=== PATIENT | male | born 1965 | race Caucasian/White ===

== ENCOUNTER 2017-11-28 14:08 | Emergency (ER) | payer OTHER ==
[~2017-11-28] VITALS: Ht 182.9 cm; Wt 120.0 kg
[~2017-11-28 14:08] MED LIST: LORTA10 PO; RIVA20 PO
[2017-11-28 14:18] VITALS: BP 121/80; PULSE 80; RESP 16; TEMP 97.9; O2SAT 99
[2017-11-28] MEDS ORDERED: SODIUM CHLORIDE 0.9% FLUSH 10 ML FLUSH IVF PRN (15:00)
[2017-11-28] MEDS ORDERED: METOPROLOL TARTRATE 5 MG/5 ML VIAL IV PUSH ONE (15:00)
[2017-11-28 15:13] VITALS: BP_SYST 103; BP_SYST 97; BP_DIAS 60; BP_DIAS 67; PULSE 124; RESP 18; RESP 20; O2SAT 99
--- NOTE | 2017-11-28 15:17 | PD ---
HPI Chief Complaint: Cardiac Complaint Time Seen by Provider: 15:00 Travel History International Travel<30 days: No Contact w/Intl Traveler<30days: No Traveled to known affect area: No History of Present Illness HPI 52-year-old male patient with history of atrial fibrillation status post ablation 4 years ago, follows up with Dr. Denney, currently not on any anticoagulation, presents to the ER today after having run outside, is now having palpitations and feels like his heart is racing like it when he was having atrial fibrillation before. He denies any chest pains, shortness of breath, fevers, vomiting, or other symptoms. He has been eating and drinking normally. Modifying Factors: None Associated Signs & Symptoms: Palpitations, heart racing Risk Factors: Atrial fibrillation PFSH Past Medical History Hx Anticoagulant Therapy: Yes (81MG ASA) Blood Disorders: No Depression: Yes Heart Rhythm Problems: Yes (4YR. AGO SAME THING RESOLVED ON OWN) Cancer: No Cardiovascular Problems: Yes Chemotherapy: No Diminished Hearing: No Endocrine: No Genitourinary: No Immune Disorder: No Musculoskeletal: No Neurologic: No Psychiatric: No Reproductive: No Respiratory: No Radiation Therapy: No Sickle Cell Disease: No Tetanus Vaccination: < 5 Years Influenza Vaccination: No Past Surgical History Abdominal Surgery: No AICD: No Arteriovenous Shunt: No Cardiac Surgery: Yes (CARDIAC ABLATION) Insulin Pump: No Joint Replacement: No Pacemaker: No Other Surgery: No Social History Alcohol Use: Yes (OCCASIONALLY) Tobacco Use: No (quit 10 years ago ) Substance Use: No Allergies-Medications (Allergen,Severity, Reaction): Coded Allergies: No Known Allergies (Verified Adverse Reaction, Unknown, 11/28/17) Reported Meds & Prescriptions Reported Meds & Active Scripts Active No Active Prescriptions or Reported Medications Review of Systems Except as stated in HPI: all other systems reviewed are Neg Physical Exam Narrative GENERAL: Well-developed middle-age male patient currently and mild distress. Awake and oriented 3. SKIN: Focused skin assessment warm/dry. HEAD: Atraumatic. Normocephalic. EYES: Pupils equal and round. No scleral icterus. No injection or drainage. ENT: No nasal bleeding or discharge. Mucous membranes pink and moist. NECK: Trachea midline. No JVD. CARDIOVASCULAR: Fast and irregularly irregular. RESPIRATORY: No accessory muscle use. Clear to auscultation. Breath sounds equal bilaterally. GASTROINTESTINAL: Abdomen soft, non-tender, nondistended. Hepatic and splenic margins not palpable. MUSCULOSKELETAL: No obvious deformities. No clubbing. No cyanosis. No edema. NEUROLOGICAL: Awake and alert. No obvious cranial nerve deficits. Motor grossly within normal limits. Normal speech. PSYCHIATRIC: Appropriate mood and affect; insight and judgment normal. Data Data Last Documented VS Vital Signs Date Time Temp Pulse Resp B/P (MAP) Pulse Ox O2 Delivery O2 Flow Rate FiO2 11/28/17 15:49 97.8 101 18 100/62 (75) 100 Room Air Orders Orders Electrocardiogram (11/28/17 14:56) Basic Metabolic Panel (Bmp) (11/28/17 14:56) Ckmb (Isoenzyme) Profile (11/28/17 14:56) Complete Blood Count With Diff (11/28/17 14:56) Magnesium (Mg) (11/28/17 14:56) Prothrombin Time / Inr (Pt) (11/28/17 14:56) Act Partial Throm Time (Ptt) (11/28/17 14:56) Troponin I (11/28/17 14:56) Ecg Monitoring (11/28/17 14:56) Bilateral Bp Monitoring (11/28/17 14:56) Iv Access Insert/Monitor (11/28/17 14:56) Oximetry (11/28/17 14:56) Oxygen Administration (11/28/17 14:56) Sodium Chloride 0.9% Flush (Ns Flush) (11/28/17 15:00) Chest, Pa & Lat (11/28/17 14:56) Metoprolol Tartrate Inj (Lopressor Inj) (11/28/17 15:00) CKMB (11/28/17 15:05) CKMB% (11/28/17 15:05) Labs Laboratory Tests Test 11/28/17 15:05 White Blood Count 9.5 TH/MM3 Red Blood Count 5.24 MIL/MM3 Hemoglobin 15.8 GM/DL Hematocrit 47.0 % Mean Corpuscular Volume 89.6 FL Mean Corpuscular Hemoglobin 30.2 PG Mean Corpuscular Hemoglobin Concent 33.7 % Red Cell Distribution Width 13.9 % Platelet Count 227 TH/MM3 Mean Platelet Volume 10.1 FL Neutrophils (%) (Auto) 65.2 % Lymphocytes (%) (Auto) 22.6 % Monocytes (%) (Auto) 9.0 % Eosinophils (%) (Auto) 2.7 % Basophils (%) (Auto) 0.5 % Neutrophils # (Auto) 6.2 TH/MM3 Lymphocytes # (Auto) 2.1 TH/MM3 Monocytes # (Auto) 0.9 TH/MM3 Eosinophils # (Auto) 0.3 TH/MM3 Basophils # (Auto) 0.0 TH/MM3 CBC Comment DIFF FINAL Differential Comment Prothrombin Time 10.4 SEC Prothromb Time International Ratio 1.0 RATIO Activated Partial Thromboplast Time 25.2 SEC Blood Urea Nitrogen 17 MG/DL Creatinine 1.18 MG/DL Random Glucose 94 MG/DL Calcium Level 9.0 MG/DL Magnesium Level 2.2 MG/DL Sodium Level 141 MEQ/L Potassium Level 4.2 MEQ/L Chloride Level 108 MEQ/L Carbon Dioxide Level 23.4 MEQ/L Anion Gap 10 MEQ/L Estimat Glomerular Filtration Rate 65 ML/MIN Total Creatine Kinase 312 U/L Creatine Kinase MB 6.8 NG/ML Creatine Kinase MB % 2.2 % Troponin I LESS THAN 0.02 NG/ML MDM Medical Decision Making Medical Screen Exam Complete: Yes Emergency Medical Condition: Yes Medical Record Reviewed: Yes Interpretation(s) EKG shows atrial fibrillation with rapid ventricular response at a rate of 150 bpm Laboratory Tests Test 11/28/17 15:05 Monocytes (%) (Auto) 9.0 % (0.0-8.0) Chloride Level 108 MEQ/L (98-107) Estimat Glomerular Filtration Rate 65 ML/MIN (>89) Total Creatine Kinase 312 U/L (39-308) Creatine Kinase MB 6.8 NG/ML (0.5-3.6) Troponin I LESS THAN 0.02 NG/ML Last 24 hours Impressions Chest X-Ray 11/28/17 3983 Signed Impressions: CONCLUSION: No active disease. Differential Diagnosis Dysrhythmias versus dehydration versus electrolyte abnormalities Narrative Course Cardiac enzymes are negative. EKG shows A. fib with RVR and patient was given IV metoprolol in the ER with improvement rates, his heart rate went into the 100s. The case was discussed with Dr. Denney, and he states that considering the rate is coming down, patient can follow-up in his clinic on Thursday and be started on metoprolol 25 twice daily. On the other hand, if the rate is fairly uncontrolled, patient can be admitted as well. I have offered to admit the patient as well but he is comfortable with outpatient therapy at this point. Patient has been on this dose in the past and states that he had been taking baby aspirin before he got an ablation for his atrial fibrillation. At this point, he should return for any worsening in symptoms. The plan was discussed with him and he states understanding. Diagnosis Primary Impression: Atrial fibrillation with RVR Med/Other Pt SpecificInfo: Prescription(s) given Scripts Metoprolol Tartrate (Metoprolol Tartrate) 25 Mg Tab 25 MG PO BID, #14 TAB 0 Refills Prov: Jonathan Barrios MD 11/28/17 Aspirin (Aspirin) 325 Mg Tab 325 MG PO DAILY, #14 TAB 0 Refills Prov: Jonathan Barrios MD 11/28/17 Disposition: 01 DISCHARGE HOME Condition: Stable Jonathan Barrios MD Nov 28, 2017 15:17
[2017-11-28 15:22] LABS: AUTOMATED NEUTROPHIL # 6.2 TH/MM3 (1.8-7.7); BASOPHIL % 0.5 % (0.0-2.0); EOSINOPHIL # 0.3 TH/MM3 (0-0.4); EOSINOPHIL % 2.7 % (0.0-4.0); HEMOGLOBIN 15.8 GM/DL (13.0-17.0); LYMPH % 22.6 % (9.0-44.0); LYMPHOCYTE # 2.1 TH/MM3 (1.0-4.8); MEAN CELL VOLUME 89.6 FL (80.0-100.0); MEAN CORPUSCULAR HEMOGLOBIN 30.2 PG (27.0-34.0); MEAN CORPUSCULAR HGB CONC 33.7 % (32.0-36.0); MEAN PLATELET VOLUME 10.1 FL (7.0-11.0); MONOCYTE # 0.9 TH/MM3 (0-0.9); NEUT % 65.2 % (16.0-70.0); PLATELET COUNT 227 TH/MM3 (150-450); RED BLOOD COUNT 5.24 MIL/MM3 (4.50-5.90); RED CELL DISTRIBUTION WIDTH 13.9 % (11.6-17.2); WHITE BLOOD COUNT 9.5 TH/MM3 (4.0-11.0)
[2017-11-28 15:34] LABS: PROTHROMBIN TIME - PATIENT 10.4 SEC (9.8-11.6)
[2017-11-28 15:49] VITALS: BP 100/62; PULSE 101; RESP 18; TEMP 97.8; O2SAT 100
[2017-11-28 15:52] LABS: BICARBONATE 23.4 MEQ/L (21.0-32.0); BLOOD UREA NITROGEN 17 MG/DL (7-18); CHLORIDE 108 MEQ/L (98-107); CREATININE 1.18 MG/DL (0.60-1.30); GLOMERULAR FILTRATION RATE 65 ML/MIN (>89); GLUCOSE,RANDOM 94 MG/DL (74-106); MAGNESIUM 2.2 MG/DL (1.5-2.5); SODIUM (NA) 141 MEQ/L (136-145)
[2017-11-28 15:54] LABS: TROPONIN I LESS THAN 0.02 NG/ML (0.02-0.05)
--- NOTE | 2017-11-28 16:04 | RADRPT ---
EXAM DATE: 11/28/2017 3:47 PM EDT AGE/SEX: 52 years / Male INDICATIONS: Palpitations. CLINICAL DATA: This is the patient's initial encounter. Patient reports that signs and symptoms have been present for 1 day and indicates a pain score of 0/10. MEDICAL/SURGICAL HISTORY: None. None. COMPARISON: No prior exams available for comparison. FINDINGS: PA and lateral views of the chest demonstrate the lungs to be symmetrically aerated without evidence of mass, infiltrate or effusion. The cardiomediastinal contours are unremarkable. Osseous structures are intact. CONCLUSION: No active disease. Electronically signed by: Sidney Perez MD 11/28/2017 4:03 PM EDT
[2017-11-28] MEDS ORDERED: METO25TA3 PO (16:56)
[2017-11-28] MEDS ORDERED: ASPI-183 PO (16:56)
[2017-11-28 17:17] VITALS: BP 120/77; TEMP 97.8
--- NOTE | 2017-11-29 13:32 | EKG ---
Date Performed: 11/28/2017 Time Performed: 14:26:21 PTAGE: 52 years EKG: ATRIAL FIBRILLATION WITH RAPID VENTRICULAR RESPONSE MARKED LEFT AXIS DEVIATION LEFT BUNDLE BRANCH BLOCK ABNORMAL ECG PREVIOUS TRACING : 06/02/2013 17.25 Atrial fibrillation is new since the prior tracing, and it is associated with new left bundle branch block. Clinical correlation strongly recommended. DOCTOR: Graham Rouse Interpretating Date/Time 11/29/2017 13:30:30
== END 2017-11-28 17:17 | disposition home or self-care (01) ==
LOC: NEPE 14:08
DX: I48.91 Unspecified atrial fibrillation (principal); I44.7 Left bundle-branch block, unspecified; R94.31 Abnormal electrocardiogram [ECG] [EKG]; F32.9 Major depressive disorder, single episode, unspecified; Z87.891 Personal history of nicotine dependence
CPT/HCPCS: 71046; 80048; 82550; 82552; 83735; 84484; 85025; 85610; 85730; 93005; 96374